=== PATIENT | male | born 1995 | race Caucasian/White ===

== ENCOUNTER → 2024-04-21 08:49 | Outpatient (REF) | payer OTHER, SELFPAY ==
--- NOTE | 2024-04-21 09:03 | CA_ITS ---
Transthoracic Echocardiogram Patient (Last, First, Middle): Donavan Hurtado, Gender: Male Date of : 1995 Age: 28 Procedure Date: 04/21/2024 Procedure Type: Transthoracic Echocardiogram Location: OP Height: 185.42 cm Weight: 93.9 kg BSA: 2.18 m2 Heart Rate: bpm BP: 138 / 70 mmHg [employer]working [employer] Sander: TO Referring MD: Tres Diaz MD Sql Engineer: Chad Briggs MD Symptoms: Z82.79 FAM HX BISCUSPID AORTIC VALVE ,HX OTHER CONGENITA ALFORMATIONS Study Quality: Good ECG Rhythm: Sinus Conclusions: - Essentially normal study Findings Procedure Information Contrast agent, definity, is being given per protocol without apparent complications. Left Ventricle Normal left ventricular size, thickness, and systolic function. The visually estimated ejection fraction is between 60-65%. Diastolic function is normal for age. Right Ventricle Normal right ventricular cavity size and systolic function. Atria Both atria are normal in size. Aortic Valve The aortic valve structure and function is likely normal. There is no aortic valve stenosis. There is no aortic valve regurgitation. Mitral Valve Normal mitral valve structure and function. There is no mitral valve regurgitation. There is no mitral valve stenosis. Pulmonic Valve The pulmonic valve is likely normal. There is trace pulmonic valve regurgitation. Tricuspid Valve Normal tricuspid valve structure. There is trace tricuspid valve regurgitation. The right ventricular systolic pressure is normal. The right ventricular systolic pressure is 26 mmHg. Normal right atrial pressure. There is no evidence of pulmonary hypertension. Great Vessels All visible segments of the aorta are normal in size. The pulmonary artery was not well visualized. There is no dilatation of the ascending aorta measuring 3.30 cm. Venous The inferior vena cava is normal in size and collapses greater than 50% with inspiration. Pericardium/Pleural There is no evidence of pericardial effusion. Prior Study Comparison No prior study available for comparison. Measurements 2D Linear Measurements IVSd: 0.87 0.6-0.9/0.6-1.0 cm LVIDd: 5.44 3.9-5.3/4.2-5.9 cm LVIDd Index: 2.50 2.4-3.2/2.2-3.1 cm/m2 LVIDs: 3.53 2.0-3.6 cm LVPWd: 0.89 0.7-1.1 cm LA Diam: 3.80 2.7-3.8/3.0-4.0 cm LAIDs Index: 1.74 1.5-2.3 cm/m2 LV Mass: 220.75 67-162/88-224 g LV Mass Index: 101.26 43-95/49-115 g/m2 LVOT Diam: 2.40 3.0+(-)1.3 cm 2D Systolic Function EF 4C: 62.10 >55% EF 2C: 58.50 >55% EF BiP: 60.70 >55% Mitral Valve MV Pk E: 0.57 MV PK A: 0.56 MV Decel Time: 198.00 E/A: 1.00 E'Lateral: 12.20 E'Medial: 9.14 E/E' Med: 6.20 E/E' Lat: 4.60 PHT: 58.00 MVA PHT: 3.79 Decel Prowers: 2.86 Aortic Valve AoV Pk Imtiaz: 1.41 AoV Mn Imtiaz: 0.87 AoV VTI: 0.25 AoV Pk Grad: 8.00 Aov Mn Grad: 4.00 SAMANTHA Cont.VTI: 4.48 LVOT LVOT Pk Imtiaz: 1.22 LVOT Mn Imtiaz: 0.77 LVOT VTI: 0.25 LVOT Pk Grad: 6.00 LVOT Mn Grad: 3.00 LVOT Diam: 2.40 LVOT Area: 4.52 Diastolic Function MV Pk E: 0.57 MV Pk A: 0.56 E/A: 1.00 E'Medial: 9.14 E/E' Med: 6.20 E' Laterial: 12.20 E/E' Lat: 4.60 Right Ventricle TAPSE (mm): 22.30 TVS' Imtiaz: 10.60 Tricuspid Valve TR Pk Imtiaz: 2.42 TR Pk Grad: 23.00 RA Press: 3.00 RVSP: 26.00 Great Vessels Aorta Sinus of Valsalva: 3.14 2.0-3.[address] [place]: 2.54 1.7-3.4 cm Ao Asc: 3.30 2.1-3.4 cm Ao Arch: 3.00 Updated in Other Vendor System with Status of Final Chad Briggs MD electronically signed on 04/21/2024 5:03:23 PM with status of Final
--- NOTE | 2024-04-21 09:04 | HM_ITS ---
Conclusion: 1. Patient was monitored for 14 days and 21 hours 2. Baseline was normal sinus rhythm with average heart of 77 beats per minute 3. One sinus pause noted at 2.55 seconds at 08:00 on day 11 of monitoring 4. No significant arrhythmias noted 5. Patient marked the counter 1 time correlating with sinus rhythm MTDD
== END ==
LOC: HO.CARD 08:49
PROVIDERS: PCP Internal Medicine; Visit Provider Internal Medicine
DX: I48.91 Unspecified atrial fibrillation (principal)
CPT/HCPCS: 93246; 93306; Q9957

== ENCOUNTER → 2024-04-21 09:03 | Outpatient (BNV) | payer OTHER, SELFPAY | PROVIDERS: PCP Internal Medicine; Visit Provider Internal Medicine Cardiovascular Disease | DX: R00.0 Tachycardia, unspecified (principal) | CPT/HCPCS: 93248; 93303 ==